=== PATIENT | female | born 2000 | race Caucasian/White ===

== ENCOUNTER 2021-10-30 17:43 | Emergency (ER) | payer OTHER, SELFPAY ==
[2021-10-30 17:53] VITALS: BP 152/111; PULSE 125; RESP 16; TEMP 36.2; O2SAT 100
[2021-10-30 20:07] VITALS: BP 160/122; PULSE 121; RESP 20; TEMP 36.7; O2SAT 100
--- NOTE | 2021-10-30 20:48 | ED.GENADULT ---
HPI - General Adult General Chief complaint: Dental/Oral Stated complaint: dental/jaw pain Time Seen by Provider: 10/30/21 20:09 History of Present Illness HPI narrative: Patient is a 21-year-old female who presents ER with concerns. Reports she has bad tooth in her molars. Woke up with pain on the left side today. Feels like her tongue might be slightly swollen on the left side as well. No difficulty breathing or swallowing. No facial swelling. No fevers or chills or sweats. Related Data Allergies Allergy/AdvReac Type Severity Reaction Status Date / Time No Known Allergies Allergy Unverified 06/11/21 08:17 Review of Systems Constitutional: Constitutional: Denies chills, Denies fever(s) and Denies weakness ENT: Denies dysphagia, Denies nasal congestion and Denies sore throat Comments: Dental pain Cardiovascular: Cardiovascular: Denies chest pain, Denies rapid heart rate and Denies radiating jaw, neck or arm pain Respiratory: Respiratory: Denies cough and Denies dyspnea PMFSH Past Medical History Medical History (Updated 10/30/21 @ 20:52 by Lizandro Fair MD) Dontae-Danlos disease Surgical History Surgical History (Updated 10/30/21 @ 20:49 by Lizandro Fair MD) No pertinent past surgical history Social History Social History (System 06/11/21 @ 08:17 by Hernandez Campbell) Smoking status: Never smoker Exam Narrative: GENERAL: Well-appearing, well-nourished, and in no acute distress. HEAD: Normocephalic, atraumatic. EYES: PERRL and EOMI. ENT: Mucous membranes moist. No facial swelling. Tongue normal-appearing without edema. Normal posterior oropharynx with midline uvula that is nonedematous. Poor dentition of the molars. Gingiva next to tooth #18 and 17 is inflamed but no obvious abscess. NECK: Supple. CHEST: Clear to auscultation. No respiratory distress. HEART: Tachycardic and regular. Normal peripheral pulses. NEURO: Alert and oriented x3. PSYCH: Normal mood and affect. Course Course Emergency Course: We will treat as dental infection. No evidence of angioedema or other swelling. Patient requires liquid medication because she has a hard time swallowing pills. Vital Signs Vital signs: Vital Signs Temperature 97.2 F L 10/30/21 17:53 Pulse Rate 125 H 10/30/21 17:53 Respiratory Rate 16 10/30/21 17:53 Blood Pressure 152/111 H 10/30/21 17:53 Pulse Oximetry 100 10/30/21 17:53 Temperature 98.1 F 10/30/21 20:07 Pulse Rate 121 H 10/30/21 20:07 Respiratory Rate 20 10/30/21 20:07 Blood Pressure 160/122 H 10/30/21 20:07 Pulse Oximetry 100 10/30/21 20:07 Medical Decision Making Vital Signs Vital Signs: Vital Signs Temperature 97.2 F L 10/30/21 17:53 Pulse Rate 125 H 10/30/21 17:53 Respiratory Rate 16 10/30/21 17:53 Blood Pressure 152/111 H 10/30/21 17:53 Pulse Oximetry 100 10/30/21 17:53 Temperature 98.1 F 10/30/21 20:07 Pulse Rate 121 H 10/30/21 20:07 Respiratory Rate 20 10/30/21 20:07 Blood Pressure 160/122 H 10/30/21 20:07 Pulse Oximetry 100 10/30/21 20:07 Discharge Plan Discharge Clinical Impression: Toothache Patient Disposition: Home, Self-Care Condition: Stable Instructions: Toothache (ED) Additional Instructions: Return the ER if you have difficulty breathing or swallowing, you have increased swelling of your face or swelling of your tongue, you lose consciousness, you have additional concerns. Prescriptions: New amoxicillin 250 mg/5 mL suspension for reconstitution 500 mg PO TID 3 Days Qty: 90 RF: 0 Follow-up/Referrals: Dental Referral Line [Outside] - 1 Week PHYSICIAN,REHABILITATION PHYSICIAN [Primary Care Provider] - Stand Alone Forms: Work/School Release IP
[2021-10-30] MEDS: AMOXICILLIN 250 MG/5 ML SUSPENSION 1000 MG PO (21:03)
== END 2021-10-30 21:24 | disposition home or self-care (01) ==
PROVIDERS: Emergency Provider Emergency Medicine
DX: K08.89 Other specified disorders of teeth and supporting structures (principal); Q79.60 Ehlers-Danlos syndrome, unspecified
CPT/HCPCS: 99283; A9270